=== PATIENT | female | born 1965 | race Caucasian/White ===

== ENCOUNTER 2016-11-09 10:17 | Emergency (ER) | payer MEDICARE, MEDICAID ==
[~2016-11-09] VITALS: Ht 156.2 cm; Wt 64.3 kg
[2016-11-09 10:22] VITALS: BP 133/80; PULSE 84; RESP 16; TEMP 98; O2SAT 95
[2016-11-09] MEDS ORDERED: PROZ40CA PO (10:49)
[2016-11-09] MEDS ORDERED: CLON1 PO (10:49)
[2016-11-09] MEDS ORDERED: SUBO2MIS SL (10:49)
[2016-11-09] MEDS ORDERED: PRED20 PO (10:52)
[2016-11-09] MEDS ORDERED: VENTAER INH (10:52)
--- NOTE | 2016-11-09 10:56 | PD ---
HPI Chief Complaint: Respiratory Symptoms Time Seen by Provider: 10:39 Travel History International Travel<30 days: No Contact w/Intl Traveler<30days: No Traveled to known affect area: No History of Present Illness HPI The patient was seen and examined in the presence of the nurse. She complains of cough and congestion wheeze. She is a lifelong smoker. She denies history of lung disease. She's had some runny nose and congestion but no fever or chest pain. PFSH Past Medical History Anxiety: Yes Tetanus Vaccination: > 5 Years ?: Not LMP: coty menapause Past Surgical History Gynecologic Surgery: Yes (BILAT OOPHERECTOMY) Other Surgery: Yes (FACIAL RECONSTRUCTION) Social History Alcohol Use: No Tobacco Use: Yes (1 PACK PER WEEK) Substance Use: No Allergies-Medications (Allergen,Severity, Reaction): Coded Allergies: No Known Allergies (Unverified , 11/09/16) Reported Meds & Prescriptions Reported Meds & Active Scripts Active Reported Suboxone Sublingual Film (Buprenorphine-Naloxone Sublingual Film) 2-0.5 Mg Film 1 Film SL DAILY Unique ID number required: Prozac (Fluoxetine HCl) 40 Mg Cap 40 Mg PO DAILY Klonopin (Clonazepam) 1 Mg Tab 1 Mg PO HS Review of Systems General / Constitutional: No: Fever HENT: No: Headaches Respiratory: Positive: Cough, Wheezing Physical Exam Narrative GENERAL: Well-nourished, well-developed patient in no apparent distress. SKIN: Focused skin assessment reveals no rash and nodules. Skin is Warm and dry. HEAD: Atraumatic. Normocephalic. EYES: Pupils equal and round. No scleral icterus. No injection or drainage. ENT: No nasal bleeding or discharge. Mucous membranes pink and moist. NECK: Trachea midline. No JVD. CARDIOVASCULAR: Regular rate and rhythm. No murmur appreciated. RESPIRATORY: No accessory muscle use. Minor rhonchi and expiratory wheeze. Breath sounds equal bilaterally. GASTROINTESTINAL: Abdomen soft, non-tender, nondistended. Hepatic and splenic margins not palpable. MUSCULOSKELETAL: No obvious deformities. No clubbing. No cyanosis. No edema. NEUROLOGICAL: Awake and alert. No obvious cranial nerve deficits. Motor grossly within normal limits. Normal speech. PSYCHIATRIC: Appropriate mood and affect; insight and judgment normal. Data Data Last Documented VS Vital Signs Date Time Temp Pulse Resp B/P Pulse Ox O2 Delivery O2 Flow Rate FiO2 11/09/16 10:40 82 16 97 Room Air 11/09/16 10:22 98.0 133/80 MDM Medical Decision Making Medical Screen Exam Complete: Yes Emergency Medical Condition: Yes Medical Record Reviewed: Yes Differential Diagnosis Bronchitis, COPD, URI Narrative Course I have reviewed the patient's electronic medical record. Presentation here consistent with viral bronchitis and likely some mild COPD Prescribed her an albuterol inhaler and encouraged her to stop smoking Gave her 5 days of prednisone Recommend primary care follow-up Diagnosis Primary Impression: Acute viral bronchitis Additional Instructions: The patient was advised to follow up with their physician and return if they worsen. Stop smoking Med/Other Pt SpecificInfo: Prescription(s) given Scripts Albuterol 18 GM Inh (Ventolin Hfa 18 GM Inh)90 Mcg/Act Aer2 Puff INH Q4H PRN ( SHORTNESS OF BREATH) #1 INHALER Ref 0 Prov:Brandon Holt MD 11/09/16 Prednisone 20 Mg Tab20 Mg PO DAILY #5 TAB Ref 0 Prov:Brandon Holt MD 11/09/16 Disposition: 01 DISCHARGE HOME Condition: Stable Brandon Holt MD Nov 09, 2016 10:56
== END 2016-11-09 11:15 | disposition home or self-care (01) ==
LOC: PHED 10:17
DX: J20.8 Acute bronchitis due to other specified organisms (principal)
CPT/HCPCS: 99283

== ENCOUNTER 2017-05-31 10:10 | Inpatient (IN) | payer MEDICARE, MEDICAID ==
[2017-05-31] VITALS (9 sets, daily range): BP systolic 104–129; BP diastolic 65–100; PULSE 95–117; RESP 18–24; TEMP 96–99.4; O2SAT 89–96
[~2017-05-31] VITALS: Ht 156.2 cm; Wt 69.8 kg
[~2017-05-31 10:10] MED LIST: CLON1 PO; PRED20 PO; PROZ40CA PO; SUBO2MIS SL; VENTAER INH
[2017-05-31] MEDS ORDERED: LOSA50TA PO (10:21)
[2017-05-31] MEDS ORDERED: MONT10TA2 PO (10:21)
[2017-05-31] MEDS ORDERED: LEVO50TA4 PO (10:21)
[2017-05-31] MEDS ORDERED: SYMB160A INH (10:21)
[2017-05-31] MEDS ORDERED: methylPREDNISolone SOD SUCC 125 MG/2 ML VIAL IV PUSH ONE (10:30)
[2017-05-31] MEDS: RESP: ALBUTEROL 2.5 MG/IPRATROPIUM 0.5 MG NEB (SCH) INH ×3 (10:39→10:42)
--- NOTE | 2017-05-31 10:44 | PD ---
HPI Chief Complaint: Respiratory Distress Time Seen by Provider: 10:17 Travel History International Travel<30 days: No Contact w/Intl Traveler<30days: No Traveled to known affect area: No History of Present Illness HPI 52-year-old female presents by triage with friend with note of shortness of breath over the past couple of days. She states that she does not wear oxygen at home. She states she is visiting. She states she tried her inhaler without relief. She states she feels worse when she moves around. She denies any other concurrent complaints. Duration is 2 days. She denies other modifying factors. PFSH Past Medical History Anxiety: Yes COPD: Yes Diminished Hearing: No Hypertension: Yes Thyroid Disease: Yes Influenza Vaccination: Yes ?: Not Past Surgical History Gynecologic Surgery: Yes (BILAT OOPHERECTOMY) Other Surgery: Yes (FACIAL RECONSTRUCTION) Social History Alcohol Use: No Tobacco Use: Yes (1 PACK PER WEEK) Substance Use: No Allergies-Medications (Allergen,Severity, Reaction): Coded Allergies: No Known Allergies (Unverified Allergy, Unknown, 05/31/17) Reported Meds & Prescriptions Reported Meds & Active Scripts Active Ventolin Hfa 18 GM Inh (Albuterol Sulfate) 90 Mcg/Act Aer 2 Puff INH Q4H PRN Reported Symbicort Inh (Budesonide/Formoterol Fumarate) 160-4.5 Mcg/Act Aero 1 Puff INH Q12HR Singulair (Montelukast Sodium) 10 Mg Tab 10 Mg PO HS Levothyroxine (Levothyroxine Sodium) 50 Mcg Tab 50 Mcg PO DAILY Losartan (Losartan Potassium) 50 Mg Tab 0 PO DAILY Suboxone Sublingual Film (Buprenorphine-Naloxone Sublingual Film) 2-0.5 Mg Film 1 Film SL DAILY Unique ID number required: Prozac (Fluoxetine HCl) 40 Mg Cap 40 Mg PO DAILY Klonopin (Clonazepam) 1 Mg Tab 1 Mg PO HS Review of Systems Except as stated in HPI: all other systems reviewed are Neg Physical Exam Narrative GENERAL: Well-nourished, well-developed patient. Ill-appearing SKIN: Warm and dry. HEAD: Normocephalic and atraumatic. EYES: No injection or drainage. ENT: No nasal drainage noted. NECK: Supple, trachea midline. CARDIOVASCULAR: Regular rate and rhythm RESPIRATORY: Decreased aeration bilaterally. No accessory muscle use. GASTROINTESTINAL: Abdomen soft, non-tender, nondistended. EXTREMITIES: No edema. NEUROLOGICAL: Awake and alert. Motor and sensory grossly within normal limits. Normal speech. Data Data Last Documented VS Vital Signs Date Time Temp Pulse Resp B/P (MAP) Pulse Ox O2 Delivery O2 Flow Rate FiO2 05/31/17 11:18 99.1 108 20 104/65 (78) 96 Nasal Cannula 2.00 Orders Orders Complete Blood Count With Diff (05/31/17 10:20) Comprehensive Metabolic Panel (05/31/17 10:20) B-Type Natriuretic Peptide (05/31/17 10:20) Act Partial Throm Time (Ptt) (05/31/17 10:20) Prothrombin Time / Inr (Pt) (05/31/17 10:20) Magnesium (Mg) (05/31/17 10:20) Ckmb (Isoenzyme) Profile (05/31/17 10:20) Troponin I (05/31/17 10:20) Influenzae A/B Antigen (05/31/17 10:20) Blood Culture (05/31/17 10:20) Iv Access Insert/Monitor (05/31/17 10:20) Electrocardiogram (05/31/17 10:20) Ecg Monitoring (05/31/17 10:20) Oximetry (05/31/17 10:20) Oxygen Administration (05/31/17 10:20) Chest, Single Ap (05/31/17 10:20) Sodium Chloride 0.9% Flush (Ns Flush) (05/31/17 10:30) Methylprednisolone So Succ Inj (Solumedr (05/31/17 10:30) Albuterol-Ipratropium Neb (Duoneb Neb) (05/31/17 10:30) Lactic Acid (05/31/17 10:20) Ceftriaxone Inj (Rocephin Inj) (05/31/17 11:48) Azithromycin Inj (Zithromax Inj) (05/31/17 11:48) Sodium Chlor 0.9% 1000 Ml Inj (Ns 1000 M (05/31/17 12:00) Admit To Inpatient (05/31/17 ) Vital Signs (Adult) KETURAH.Q4H (05/31/17 12:25) Activity Oob With Assistance (05/31/17 12:25) Trouble Operator / Telemetry KETURAH.Q8H (05/31/17 12:25) Sodium Chlor 0.45% 1000 Ml Inj (1/2 Ns 1 (05/31/17 12:25) Inpatient Certification (05/31/17 ) Admit Order (Ed Use Only) (05/31/17 12:25) Labs Laboratory Tests Test 05/31/17 10:45 White Blood Count 21.2 TH/MM3 Red Blood Count 4.18 MIL/MM3 Hemoglobin 12.1 GM/DL Hematocrit 36.1 % Mean Corpuscular Volume 86.3 FL Mean Corpuscular Hemoglobin 28.9 PG Mean Corpuscular Hemoglobin Concent 33.5 % Red Cell Distribution Width 14.3 % Platelet Count 349 TH/MM3 Mean Platelet Volume 8.1 FL Neutrophils (%) (Auto) 93.9 % Lymphocytes (%) (Auto) 2.9 % Monocytes (%) (Auto) 1.8 % Eosinophils (%) (Auto) 0.6 % Basophils (%) (Auto) 0.8 % Neutrophils # (Auto) 19.9 TH/MM3 Lymphocytes # (Auto) 0.6 TH/MM3 Monocytes # (Auto) 0.4 TH/MM3 Eosinophils # (Auto) 0.1 TH/MM3 Basophils # (Auto) 0.2 TH/MM3 CBC Comment AUTO DIFF Prothrombin Time 10.7 SEC Prothromb Time International Ratio 1.0 RATIO Activated Partial Thromboplast Time 26.1 SEC Blood Urea Nitrogen 17 MG/DL Creatinine 0.92 MG/DL Random Glucose 152 MG/DL Total Protein 7.3 GM/DL Albumin 2.0 GM/DL Calcium Level 8.6 MG/DL Magnesium Level 2.1 MG/DL Alkaline Phosphatase 180 U/L Aspartate Amino Transf (AST/SGOT) 21 U/L Alanine Aminotransferase (ALT/SGPT) 14 U/L Total Bilirubin 0.4 MG/DL Sodium Level 135 MEQ/L Potassium Level 3.5 MEQ/L Chloride Level 100 MEQ/L Carbon Dioxide Level 23.3 MEQ/L Anion Gap 12 MEQ/L Estimat Glomerular Filtration Rate 64 ML/MIN Lactic Acid Level 1.3 mmol/L Total Creatine Kinase 87 U/L Troponin I 0.03 NG/ML B-Type Natriuretic Peptide 150 PG/ML MDM Medical Decision Making Medical Screen Exam Complete: Yes Emergency Medical Condition: Yes Interpretation(s) CBC & BMP Diagram 10/30/17 10:45 Total Protein 7.3, Albumin 2.0 L, Calcium Level 8.6, Magnesium Level 2.1, Alkaline Phosphatase 180 H, Aspartate Amino Transf (AST/SGOT) 21, Alanine Aminotransferase (ALT/SGPT) 14, Total Bilirubin 0.4 Last 24 hours Impressions Chest X-Ray 05/31/17 1020 Signed Impressions: Service Date/Time: Wednesday, May 31, 2017 11:07 - CONCLUSION: 1. Diffuse interstitial prominence, likely chronic although chronicity is difficult to establish without previous exams. 2. Superimposed patchy airspace opacities throughout the left lung most prominently in the left upper lobe. Differential considerations and fluid atypical pulmonary edema versus infection/ inflammatory etiologies. Barry Erickson MD Differential Diagnosis COPD exacerbation, pneumothorax, pneumonia, URI, anemia, renal failure Narrative Course Will check blood work, chest x-ray and dose with DuoNeb's, Solu-Medrol and reevaluate Patient with poor IV access, EJ placed by me in flush. Patient updated and agrees to admission to the hospital she is feeling better but is still requiring oxygen and tachypneic Procedures Procedure Narrative Right sided EJ placed by me after unable to thread left after blood flow. Blood work sent and flushed without discomfort. Line secured Sepsis Criteria SIRS Criteria (2 or more): Heart rate over 90, WBC > 54927, < 4000 or > 10% bands Sepsis Criteria (SIRS+source): Infect source susp/known Criteria Outcome: Meets sepsis criteria Physician Communication Physician Communication dr palmer agrees to admit Diagnosis Primary Impression: COPD exacerbation Additional Impression: Sepsis Qualified Codes: A41.9 - Sepsis, unspecified organism Admitting Information Admitting Physician Requests: Admit Jeri Hernandez MD May 31, 2017 10:44
[2017-05-31 11:18] LABS: APTT (PATIENT) 26.1 SEC (24.3-30.1); AUTOMATED NEUTROPHIL # 19.9 TH/MM3 (1.8-7.7); BASOPHIL # 0.2 TH/MM3 (0-0.2); BASOPHIL % 0.8 % (0.0-2.0); EOSINOPHIL # 0.1 TH/MM3 (0-0.4); EOSINOPHIL % 0.6 % (0.0-4.0); HEMATOCRIT 36.1 % (35.0-46.0); LYMPH % 2.9 % (9.0-44.0); LYMPHOCYTE # 0.6 TH/MM3 (1.0-4.8); MEAN CELL VOLUME 86.3 FL (80.0-100.0); MEAN CORPUSCULAR HEMOGLOBIN 28.9 PG (27.0-34.0); MEAN CORPUSCULAR HGB CONC 33.5 % (32.0-36.0); MONO % 1.8 % (0.0-8.0); NEUT % 93.9 % (16.0-70.0); PLATELET COUNT 349 TH/MM3 (150-450); PROTHROMBIN TIME - PATIENT 10.7 SEC (9.8-11.6); RED BLOOD COUNT 4.18 MIL/MM3 (4.00-5.30); RED CELL DISTRIBUTION WIDTH 14.3 % (11.6-17.2); WHITE BLOOD COUNT 21.2 TH/MM3 (4.0-11.0)
[2017-05-31 11:25] LABS: HEMO FLAGS AUTO DIFF
[2017-05-31 11:30] LABS: ALT (GPT) 14 U/L (10-53); ANION GAP 12 MEQ/L (5-15); AST (GOT) 21 U/L (15-37); BICARBONATE 23.3 MEQ/L (21.0-32.0); BLOOD UREA NITROGEN 17 MG/DL (7-18); CHLORIDE 100 MEQ/L (98-107); GLOMERULAR FILTRATION RATE 64 ML/MIN (>89); MAGNESIUM 2.1 MG/DL (1.5-2.5); POTASSIUM 3.5 MEQ/L (3.5-5.1); SODIUM (NA) 135 MEQ/L (136-145); TOTAL BILIRUBIN ADULT 0.4 MG/DL (0.2-1.0)
[2017-05-31 11:31] LABS: ALKALINE PHOSPHATASE 180 U/L (45-117); CREATINE KINASE 87 U/L (26-192)
--- NOTE | 2017-05-31 11:44 | RADRPT ---
EXAM DATE/TIME: 05/31/2017 11:07 [facility] COMPARISON: No previous studies available for comparison. INDICATIONS : Short of breath. MEDICAL HISTORY : Hypertension. Chronic obstructive pulmonary disease. smoker SURGICAL HISTORY : None. ENCOUNTER: Initial ACUITY: 3 days PAIN SCORE: 0/10 LOCATION: Bilateral chest FINDINGS: Diffuse interstitial prominence with superimposed airspace disease throughout the left lobe most prom inently in the left upper lobe. Cardiomediasti contours are within normal limits. Bony thorax is inta ct. CONCLUSION: 1. Diffuse interstitial prominence, likely chronic although chronicity is difficult to establish with out previous exams. 2. Superimposed patchy airspace opacities throughout the left lung most prominently in the left upper lobe. Differential considerations and fluid atypical pulmonary edema versus infection/inflammatory e tiologies. Barry Erickson MD on May 31, 2017 at 11:40 Board Certified Radiologist. This report was verified electronically.
[2017-05-31] MEDS ORDERED: AZITHROMYCIN INJ 500 MG in SODIUM CHLOR 0.9% 250 ML INJ 250 ML IV STA (11:48)
[2017-05-31] MEDS ORDERED: cefTRIAXone INJ 2,000 MG in SODIUM CHLORIDE 0.9% INJ 100 ML IV STA (11:48)
[2017-05-31] MEDS ORDERED: SODIUM CHLOR 0.9% 1000 ML INJ 1,000 ML IV ONE (12:00)
[2017-05-31] MEDS: SODIUM CHLORIDE 0.9% FLUSH 10 ML FLUSH IVF PRN ×2 (12:01→14:18)
[2017-05-31 12:49] LABS: BANDS 16 % (0-6); METAMYELOCYTES 1 % (0-1); MYELOCYTES 1 % (0-0); NEUTROPHIL # MANUAL DIFF 20.4 TH/MM3 (1.8-7.7); POLYS (SEG NEUTROPHILS) 78 % (16-70); WBC DIFF SAMPLE 100
[2017-05-31 12:51] LABS: DOHLE BODIES PRESENT (NONE SEEN); PLATELET ESTIMATE SMEAR NORMAL (NORMAL); PLATELET MORPHOLOGY NORMAL (NORMAL); SCAN/DIFF FINAL DIFF MANUAL; TOXIC GRANULATION 3+ (NORMAL)
[2017-05-31] MEDS: SODIUM CHLOR 0.45% 1000 ML INJ 1,000 ML IV SCH (14:18)
[2017-05-31] MEDS ORDERED: RESP: ALBUTEROL 2.5 MG/3 ML NEB (PRN) NEB (14:45)
[2017-05-31] MEDS: RESP: ALBUTEROL 2.5 MG/IPRATROPIUM 0.5 MG NEB (SCH) NEB ×2 (16:16→21:00)
--- NOTE | 2017-05-31 16:53 | HHI.HP ---
[facility] Non[facility]Staff Admission Diagnosis copd exacerbation Diagnoses: (1) Sepsis Diagnosis: Principal (2) Chronic obstructive pulmonary disease with acute exacerbation (3) Tobacco use (4) Leukocytosis Chief Complaint: Shortness of breath, dyspnea Travel History International Travel<30 Days: No Contact w/Intl Traveler <30 Da: No Traveled to Known Affected Are: No Sepsis Criteria SIRS Criteria (2 or more): Heart rate over 90, WBC > 22216, < 4000 or > 10% bands Sepsis Criteria (SIRS+source): Infect source susp/known Criteria Outcome: Meets sepsis criteria History of Present Illness Written by Brandon Sin, acting as scribe for Dr. Hutchinson on 05/31/17 at 16:30. 52-year-old female with known history of chronic obstructive pulmonary disease, chronic tobacco use, chronic back pain, hypertension, hypothyroidism who presented to hospital because of 4 day history of difficulty breathing. Patient states that 4 days ago she developed a sudden onset of chest pain located over her left sternal border which she described as a tightness and 9/10 on a pain scale. She states that it felt as if someone hit her in the chest. However since then she is been having intermittent chest pain that would go down to a 4/10 on a pain scale. She indicates that her chest pain did go away yesterday. She has had nausea vomiting, denies any diaphoresis. She states she started developing significant shortness of breath 3 days ago and progressively got worse until it was severe today. She states that she has never felt this way before. She is down here visiting from [place]. She does indicate that she has been smoking more since she has been visiting here. She is smoking up to a pack a cigarettes a day. She states that someone gave her some antibiotics yesterday and she has been taking that for 2 days. She had been taking ibuprofen with cough medicine. Her symptoms did not improve so she came to emergency department for evaluation. She denies any fever or chills, denies any dysuria. Has had urinary frequency. Patient had workup done emergency department found to have sepsis per criteria and recommended admission for further recommendations Review of Systems Respiratory: COMPLAINS OF: Cough, Shortness of breath Cardiovascular: COMPLAINS OF: Chest pain, Dyspnea on Exertion Genitourinary: COMPLAINS OF: Urinary frequency Except as stated in HPI: all other systems reviewed are Neg Past Family Social History Past Medical History Hypertension Chronic back pain Chronic affective pulmonary disease Chronic tobacco use Hypothyroidism Past Surgical History Bilateral breast lumpectomies Facial reconstruction Back surgery Bilateral oophorectomy Reported Medications Last Impressions Chest X-Ray 05/31/17 1020 Signed Impressions: Service Date/Time: Wednesday, May 31, 2017 11:07 - CONCLUSION: 1. Diffuse interstitial prominence, likely chronic although chronicity is difficult to establish without previous exams. 2. Superimposed patchy airspace opacities throughout the left lung most prominently in the left upper lobe. Differential considerations and fluid atypical pulmonary edema versus infection/ inflammatory etiologies. Barry Erickson MD Allergies: Coded Allergies: No Known Allergies (Unverified Allergy, Unknown, 05/31/17) Family History Reviewed is significant for chronic affective pulmonary disease, myocardial infarction, heart disease Social History Patient does smoke cigarettes and she usually smokes 5 cigarettes a day, however she is smoking 1 pack a day at this time since she was a teenager. She denies any alcohol use. She states when she was much younger she did try illicit drugs to include pain pills, but then would not divulge any other information Physical Exam Vital Signs Vital Signs Date Time Temp Pulse Resp B/P (MAP) Pulse Ox O2 Delivery O2 Flow Rate FiO2 05/31/17 15:10 97.2 98 24 129/84 (99) 94 05/31/17 14:48 05/31/17 14:24 96 18 110/71 (84) 94 Nasal Cannula 2.00 05/31/17 11:18 99.1 108 20 104/65 (78) 96 Nasal Cannula 2.00 05/31/17 10:45 96 05/31/17 10:45 96 Nasal Cannula 3.00 05/31/17 10:19 118 24 93 Nasal Cannula 2.00 05/31/17 10:13 99.4 117 24 129/97 (108) 89 Physical Exam GENERAL: Well-developed, well-nourished, and respiratory status stress cannot complete sentences. alert and orientated HEENT: Head is normocephalic without any lesions or masses noted. Facial features are symmetric. Eyes: Extraocular muscles are intact. Conjunctivae were clear. Oropharyngeal: Pharynx without any erythema edema. Tongue is midline without deviation. Buccal mucosa is moist without any masses or lesions CARDIAC: Regular rhythm, regular rate. S1/S2 are heard. No murmurs gallops or rubs. Patient does have reproducible palpable tenderness noted of the left anterior chest. LUNGS: Moderately diminished breath sounds noted bilaterally, mild expiratory wheeze noted. No wheeze, rhonchi or rales. No use of accessory muscles on inspiration or expiration. ABDOMEN: Soft, nontender. Nondistended. Bowel sounds heard in all 4 quadrants. No organomegaly or masses. Negative rebound, negative guarding EXTREMITIES: No edema, pulses are equal bilaterally. No cyanosis or clubbing Muscle skeletal: 5 out of 5 strength in proximal upper and lower ext bilaterally , grossly intact range of motion NEUROLOGY: No facial droop, no slurred speech, no tremors Psychiatry: hAs a very anxious mood, affect otherwise appropriate Laboratory Laboratory Tests Test 05/31/17 10:45 White Blood Count 21.2 Red Blood Count 4.18 Hemoglobin 12.1 Hematocrit 36.1 Mean Corpuscular Volume 86.3 Mean Corpuscular Hemoglobin 28.9 Mean Corpuscular Hemoglobin Concent 33.5 Red Cell Distribution Width 14.3 Platelet Count 349 Mean Platelet Volume 8.1 Neutrophils (%) (Auto) 93.9 Lymphocytes (%) (Auto) 2.9 Monocytes (%) (Auto) 1.8 Eosinophils (%) (Auto) 0.6 Basophils (%) (Auto) 0.8 Neutrophils # (Auto) 19.9 Lymphocytes # (Auto) 0.6 Monocytes # (Auto) 0.4 Eosinophils # (Auto) 0.1 Basophils # (Auto) 0.2 CBC Comment AUTO DIFF Differential Total Cells Counted 100 Neutrophils % (Manual) 78 Band Neutrophils % 16 Lymphocytes % 2 Monocytes % 2 Neutrophils # (Manual) 20.4 Metamyelocytes 1 Myelocytes 1 Differential Comment FINAL DIFF MANUAL Toxic Granulation 3+ Dohle Bodies PRESENT Platelet Estimate NORMAL Platelet Morphology Comment NORMAL Prothrombin Time 10.7 Prothromb Time International Ratio 1.0 Activated Partial Thromboplast Time 26.1 Blood Urea Nitrogen 17 Creatinine 0.92 Random Glucose 152 Total Protein 7.3 Albumin 2.0 Calcium Level 8.6 Magnesium Level 2.1 Alkaline Phosphatase 180 Aspartate Amino Transf (AST/SGOT) 21 Alanine Aminotransferase (ALT/SGPT) 14 Total Bilirubin 0.4 Sodium Level 135 Potassium Level 3.5 Chloride Level 100 Carbon Dioxide Level 23.3 Anion Gap 12 Estimat Glomerular Filtration Rate 64 Lactic Acid Level 1.3 Total Creatine Kinase 87 Troponin I 0.03 B-Type Natriuretic Peptide 150 Date/Time Source Procedure Growth Status 05/31/17 10:50 Blood Peripheral Aerobic Blood Culture Pending Received 05/31/17 10:50 Blood Peripheral Anaerobic Blood Culture Pending Received 05/31/17 11:51 Nasal Aspirate Influenza Types A,B Antigen (IRENE) - Final NEGATIVE FOR FLU A AND B ANTIGEN.... Complete Result Diagram: 05/31/17 1045 05/31/17 1045 Imaging Last Impressions Chest X-Ray 05/31/17 1020 Signed Impressions: Service Date/Time: Wednesday, May 31, 2017 11:07 - CONCLUSION: 1. Diffuse interstitial prominence, likely chronic although chronicity is difficult to establish without previous exams. 2. Superimposed patchy airspace opacities throughout the left lung most prominently in the left upper lobe. Differential considerations and fluid atypical pulmonary edema versus infection/ inflammatory etiologies. Barry Erickson MD Septic Shock Reassessment Heart: Regular rate and rhythm Lungs: Clear, Diminished Skin: Warm Peripheral Pulses: Bounding Right Radial Bounding Left Radial Capillary Refill: Brisk, <2 seconds Caprini VTE Risk Assessment Caprini VTE Risk Assessment: Mod/High Risk (score >= 2) Caprini Risk Assessment Model Point Value = 1 Point Value = 2 Point Value = 3 Point Value = 5 Age 41-60 Minor surgery BMI > 25 kg/m2 Swollen legs Varicose veins or History of unexplained or recurrent spontaneous Oral contraceptives or hormone replacement Sepsis (< 1 month) Serious lung disease, including pneumonia (< 1 month) Abnormal pulmonary function Acute myocardial infarction Congestive heart failure (< 1 month) History of inflammatory bowel disease Medical patient at bed rest Age 61-74 Arthroscopic surgery Major open surgery (> 45 min) Laparoscopic surgery (> 45 min) Malignancy Confined to bed (> 72 hours) Immobilizing plaster cast Central venous access Age >= 75 History of VTE Family history of VTE Factor V Leiden Prothrombin [id number] Lupus anticoagulant Anticardiolipin antibodies Elevated serum homocysteine Heparin-induced thrombocytopenia Other congenital or acquired thrombophilia Stroke (< 1 month) Elective arthroplasty Hip, pelvis, or leg fracture Acute spinal cord injury (< 1 month) Prophylaxis Regimen Total Risk Factor Score Risk Level Prophylaxis Regimen 0-1 Low Early ambulation 2 Moderate Order ONE of the following: *Sequential Compression Device (SCD) *Heparin 5000 units SQ BID 3-4 Higher Order ONE of the following medications: *Heparin 5000 units SQ TID *Enoxaparin/Lovenox 40 mg SQ daily (WT < 150 kg, CrCl > 30 mL/min) *Enoxaparin/Lovenox 30 mg SQ daily (WT < 150 kg, CrCl > 10-29 mL/min) *Enoxaparin/Lovenox 30 mg SQ BID (WT < 150 kg, CrCl > 30 mL/min) AND/OR *Sequential Compression Device (SCD) 5 or more Highest Order ONE of the following medications: *Heparin 5000 units SQ TID (Preferred with Epidurals) *Enoxaparin/Lovenox 40 mg SQ daily (WT < 150 kg, CrCl > 30 mL/min) *Enoxaparin/Lovenox 30 mg SQ daily (WT < 150 kg, CrCl > 10-29 mL/min) *Enoxaparin/Lovenox 30 mg SQ BID (WT < 150 kg, CrCl > 30 mL/min) AND *Sequential Compression Device (SCD) Assessment and Plan Assessment and Plan Sepsis - Patient meets criteria with leukocytosis and bandemia, tachycardia, patchy airspace disease noted in the left lung - Patient started on empirical antibiotics include cefepime, Zithromax - Influenza testing was negative - Follow blood cultures - Obtain sputum culture, Legionella testing, pneumococcal testing Chronic obstructive pulmonary disease with acute exacerbation - Continue O2 supplementation maintain O2 sats greater 92% - Solu-Medrol 125 mg every 8 hours - Duo nebs every 6 hours and every 2 hours as needed - Pulmonology consulted for recommendations Leukocytosis bandemia - Secondary to upper respiratory infection - Continue monitor CBC Hyperglycemia - Check hemoglobin A1c - Anticipate glucose worsening secondary to steroids, Start Accu-Cheks with sliding scale insulin if needed Hypertension - Continue home medications Hypothyroidism - Check TSH - Resume replacement therapy Prophylaxis - GI protection with Pepcid - DVT prevention with Sequential compression devices Physician Certification 2 Midnight Certification Type: Admission for Inpatient Services Order for Inpatient Services The services are ordered in accordance with Medicare regulations or non- Medicare payer requirements, as applicable. In the case of services not specified as inpatient-only, they are appropriately provided as inpatient services in accordance with the 2-midnight benchmark. Estimated LOS (days): 3 days is the estimated time the patient will need to remain in the hospital, assuming treatment plan goals are met and no additional complications. Post-Hospital Plan: Not yet determined Problem Qualifiers (1) Sepsis: Qualified Codes: A41.9 - Sepsis, unspecified organism Brandon Sin May 31, 2017 16:53 Carlos Hutchinson MD Jun 01, 2017 16:55
[2017-05-31] MEDS: CEFEPIME INJ 1,000 MG in SODIUM CHLORIDE 0.9% INJ 100 ML IV SCH ×2 (17:12→23:20)
[2017-05-31] MEDS: NICOTINE 7 MG/24 HR PATCH T-DERMAL SCH (17:43)
--- NOTE | 2017-05-31 20:55 | RADRPT ---
EXAM DATE/TIME: 05/31/2017 20:00 [facility] COMPARISON: CHEST SINGLE AP, May 31, 2017, 11:07. INDICATIONS : Pain and shortness of breath. Abnormal chest plain film exam demonstrating airspace disease in the le ft hemithorax. Patient is being evaluated for pneumonia.. RADIATION DOSE: 10.33 CTDIvol (mGy) MEDICAL HISTORY : Emphysema. Hypertension. SURGICAL HISTORY : None. ENCOUNTER: Initial ACUITY: 1 day PAIN SCALE: 9/10 LOCATION: Bilateral chest TECHNIQUE: Volumetric scanning of the chest was performed. Using automated exposure control and adjustment of t he mA and/or kV according to patient size, radiation dose was kept as low as reasonably achievable to obtain optimal diagnostic quality images. DICOM format image data is available electronically for r eview and comparison. Follow-up recommendations for detected pulmonary nodules are based at a minimum on nodule size and pa tient risk factors according to Fleischner Society Guidelines. FINDINGS: LUNGS: There is dense alveolar consolidation in the right upper lobe, perihilar region and lingula with mult iple air bronchograms. There is underlying emphysema with mild hyperinflation. There is coarse chroni c interstitial opacity along the periphery of the right lateral lung. There is apparent honeycombing in the left upper lobe. There is no pneumothorax. No concerning pulmonary nodule is visualized. PLEURAE: There is a minimal left effusion. MEDIASTINUM: The heart and great vessels demonstrate no acute abnormality. There is no mediastinal or hilar lymph adenopathy. AXILLAE: Within normal limits. No lymphadenopathy. MUSCULOSKELETAL: Within normal limits for patient age. MISCELLANEOUS: The visualized upper abdominal organs demonstrate no acute abnormality. CONCLUSION: 1. Dense consolidation in the lingula and left upper lobe characteristic of pneumonia. 2. Underlying emphysema and scarring. 3. Minimal left effusion Jc Randolph MD on May 31, 2017 at 20:50 Board Certified Radiologist. This report was verified electronically.
[2017-05-31] MEDS: methylPREDNISolone SOD SUCC 125 MG/2 ML VIAL IV PUSH SCH (21:44)
[2017-05-31] MEDS: clonazePAM 1 MG TAB PO SCH (21:45)
[2017-05-31] MEDS: FAMOTIDINE 20 MG TAB PO SCH (21:45)
[2017-05-31] MEDS: MONTELUKAST SODIUM 10 MG TAB PO SCH (21:45)
[2017-05-31] MEDS: BUDESONIDE-FORMOTEROL 160/4.5 MCG INHALER INH SCH (23:20)
[2017-06-01] VITALS (10 sets, daily range): BP systolic 112–143; BP diastolic 79–98; PULSE 85–104; RESP 20–24; TEMP 96–97.9; O2SAT 91–97
[2017-06-01] MEDS: RESP: ALBUTEROL 2.5 MG/IPRATROPIUM 0.5 MG NEB (SCH) NEB ×4 (03:06→21:20)
[2017-06-01] MEDS: SODIUM CHLORIDE 0.9% FLUSH 10 ML FLUSH IVF PRN ×2 (03:34→07:00)
[2017-06-01] MEDS: methylPREDNISolone SOD SUCC 125 MG/2 ML VIAL IV PUSH SCH ×3 (03:34→19:55)
[2017-06-01] MEDS: SODIUM CHLOR 0.45% 1000 ML INJ 1,000 ML IV SCH ×2 (03:38→15:05)
[2017-06-01] MEDS: LEVOTHYROXINE SODIUM 50 MCG TAB PO SCH (05:30)
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
[2017-06-01] MEDS ORDERED: MORPHINE SULFATE 2 MG/ML INJ IV ONE (07:00)
[2017-06-01 07:45] LABS: AUTOMATED NEUTROPHIL # 18.6 TH/MM3 (1.8-7.7); BASOPHIL % 0.1 % (0.0-2.0); EOSINOPHIL % 0.1 % (0.0-4.0); HEMATOCRIT 36.2 % (35.0-46.0); LYMPH % 3.2 % (9.0-44.0); LYMPHOCYTE # 0.6 TH/MM3 (1.0-4.8); MEAN CELL VOLUME 86.4 FL (80.0-100.0); MEAN CORPUSCULAR HEMOGLOBIN 28.2 PG (27.0-34.0); MEAN CORPUSCULAR HGB CONC 32.6 % (32.0-36.0); MONO % 0.9 % (0.0-8.0); NEUT % 95.7 % (16.0-70.0); PLATELET COUNT 361 TH/MM3 (150-450); RED BLOOD COUNT 4.19 MIL/MM3 (4.00-5.30); RED CELL DISTRIBUTION WIDTH 14.5 % (11.6-17.2); WHITE BLOOD COUNT 19.4 TH/MM3 (4.0-11.0)
[2017-06-01 07:53] LABS: HEMO FLAGS DIFF FINAL
[2017-06-01] MEDS ORDERED: NALOXONE SL SCH (09:00)
[2017-06-01] MEDS: REMOVE OLD PATCH T-DERMAL SCH (09:00)
[2017-06-01] MEDS ORDERED: NICOTINE 7 MG/24 HR PATCH T-DERMAL SCH (09:00)
[2017-06-01] MEDS ORDERED: BUPRENORPHINE SL SCH (09:00)
[2017-06-01] MEDS: CEFEPIME INJ 1,000 MG in SODIUM CHLORIDE 0.9% INJ 100 ML IV SCH ×3 (09:11→23:42)
[2017-06-01] MEDS: BUDESONIDE-FORMOTEROL 160/4.5 MCG INHALER INH SCH ×2 (09:11→19:56)
[2017-06-01] MEDS: NICOTINE 7 MG/24 HR PATCH T-DERMAL SCH (09:13)
[2017-06-01] MEDS: AZITHROMYCIN 250 MG TAB PO SCH (09:14)
[2017-06-01] MEDS: FLUoxetine HCL 20 MG CAP PO SCH (09:14)
[2017-06-01] MEDS ORDERED: ALPRAZolam 1 MG TAB PO ONE (12:50)
--- NOTE | 2017-06-01 13:02 | HHI.PR ---
Subjective Remarks Nurse reports the patient is still quite anxious. Patient says she feels much better since admission she still appears to be quite labored in her breathing which could be a component of anxiety mixed with her pathophysiology. Says she hates having the IV line in her neck, requesting something for her sore throat Objective Vital Signs Date Time Temp Pulse Resp B/P (MAP) Pulse Ox O2 Delivery O2 Flow Rate FiO2 06/01/17 12:18 97.9 104 20 139/90 (106) 94 06/01/17 11:07 93 Nasal Cannula 3.00 06/01/17 09:18 18 06/01/17 08:07 97.4 88 20 127/90 (102) 96 06/01/17 06:30 96.0 90 24 137/97 (110) 96 06/01/17 06:00 93 Nasal Cannula 2.00 28 06/01/17 04:00 96.0 85 22 112/79 (90) 93 06/01/17 00:00 96.0 90 20 128/85 (99) 97 05/31/17 21:01 93 Nasal Cannula 3.00 05/31/17 20:00 95 05/31/17 20:00 96.0 95 20 123/100 (108) 93 05/31/17 17:36 102 05/31/17 17:21 94 Nasal Cannula 2.00 05/31/17 15:10 97.2 98 24 129/84 (99) 94 05/31/17 14:48 05/31/17 14:24 96 18 110/71 (84) 94 Nasal Cannula 2.00 I/O 05/31/17 05/31/17 05/31/17 06/01/17 06/01/17 06/01/17 07:00 15:00 23:00 07:00 15:00 23:00 Intake Total 1270 ml 682 ml 1296 ml Output Total 300 ml Balance 1270 ml 382 ml 1296 ml Intake Oral 240 ml 0 ml IV Total 1270 ml 442 ml 1296 ml Output Urine Total 300 ml # Voids 0 # Bowel Movements 1 0 Result Diagram: 06/01/17 0710 05/31/17 1045 Objective Remarks Mildly labored breathing, slightly tachypneic Breath sounds are still short, shallow, has obvious wheezing heard anteriorly in the expiratory phase, no cyanosis appears anxious, at one point starts to cry A/P Assessment and Plan Sepsis secondary to pneumonia - Clinically improving, at this point leukocytosis would otherwise be improving but since the patient is on steroids it is hard to decipher - Patient started on empirical antibiotics include cefepime, Zithromax - Influenza testing was negative - Follow blood cultures as below, sputum culture pending - Legionella testing, pneumococcal testing are PENDING Bacteremia - new problem, strep pneumo found in blood, continue tx as above w/ cefepime , sensitivities pending Hypoxia - possibly chronic but given clinical picture of mild distress, CTA being ordered to r/o PE - Supplemental oxygen for COPD below - BMP in AM Left lobar consolidation - Given the vast consolidation seen on chest x-ray, pulmonology has been consulted and are following Chronic obstructive pulmonary disease with acute exacerbation - Continue O2 supplementation maintain O2 sats greater 92% - Solu-Medrol 125 mg every 8 hours for another 24 hours before weaning down to 60 MG given that the patient is still quite dyspneic - Duo nebs every 6 hours and every 2 hours as needed - Pulmonology following hyperglycemia - A1c is pending - Anticipate glucose worsening secondary to steroids, Start Accu-Cheks with sliding scale insulin if needed Hypertension - Continue home medications Hypothyroidism -Within normal limits - Resume replacement therapy Prophylaxis - GI protection with Pepcid - Lovenox Carlos Hutchinson MD Jun 01, 2017 13:02
[2017-06-01] MEDS ORDERED: ENOXAPARIN SODIUM 30 MG/0.3 ML SYRINGE SQ SCH (14:00)
[2017-06-01] MEDS ORDERED: BENZOCAINE-MENTHOL (SUGAR FREE) 15 MG-3.6 MG LOZENGE BUCCAL ONE (14:00)
[2017-06-01] MEDS ORDERED: BUPRENORPHINE/NALOXONE 8 MG/2 MG SUBLINGUAL TAB SL SCH (15:00)
[2017-06-01] MEDS: BUPRENORPHINE/NALOXONE 8 MG/2 MG SUBLINGUAL TAB SL SCH (16:00)
[2017-06-01] MEDS ORDERED: PILL SPLITTER OTHER PRN (16:30)
[2017-06-01] MEDS ORDERED: ENOXAPARIN SODIUM 80 MG/0.8 ML SYRINGE SQ SCH (18:00)
--- NOTE | 2017-06-01 18:11 | EKG ---
Date Performed: 06/01/2017 Time Performed: 07:11:51 PTAGE: 52 years EKG: Sinus rhythm NORMAL ECG Compared to prior tracing no significant change PREVIOUS TRACING : 05/31/2017 10.27 DOCTOR: Noemi Enrique Interpretating Date/Time 06/01/2017 18:10:39
--- NOTE | 2017-06-01 18:11 | EKG ---
Date Performed: 05/31/2017 Time Performed: 10:27:45 PTAGE: 52 years EKG: SINUS TACHYCARDIA WITH SHORT ID INTERVAL ABNORMAL RHYTHM ECG NO PREVIOUS TRACING DOCTOR: Neomi Enrique Interpretating Date/Time 06/01/2017 18:10:29
[2017-06-01] MEDS ORDERED: IOHEXOL 350 MG/ML 10 ML VIAL (for RAD DIAG) IVCONTRAST ONE (18:45)
--- NOTE | 2017-06-01 18:55 | RADRPT ---
EXAM DATE/TIME: 06/01/2017 18:30 [facility] COMPARISON: CT THORAX W/O CONTRAST, May 31, 2017, 20:00. INDICATIONS : Patient with hypoxia and dense consolidation in the lingula and left upper lobe consistent with pneum onia. Evaluate for pulmonary embolism. IV CONTRAST: 65 cc Omnipaque 350 (iohexol) IV RADIATION DOSE: 15.06 CTDIvol (mGy) MEDICAL HISTORY : Hypertension. Chronic obstructive pulmonary disease. Gastroesophageal reflux disease. SURGICAL HISTORY : None. ENCOUNTER: Initial ACUITY: 2 days PAIN SCALE: 0/10 LOCATION: chest TECHNIQUE: Volumetric scanning of the chest was performed using a pulmonary embolism protocol MIP images were re constructed. Using automated exposure control and adjustment of the mA and/or kV according to patien t size, radiation dose was kept as low as reasonably achievable to obtain optimal diagnostic quality images. DICOM format image data is available electronically for review and comparison. Follow-up recommendations for detected pulmonary nodules are based at a minimum on nodule size and pa tient risk factors according to Fleischner Society Guidelines. FINDINGS: PULMONARY ARTERIES: No filling defects are seen in the pulmonary arteries through the segmental level. LUNGS: There is no pneumothorax . Areas of dense consolidation are again noted in the left upper lobe and li ngula with air bronchograms. This may be slightly improved. There is underlying emphysema and chronic lung disease with honeycombing in the upper lobes. There is mild apparent scarring again noted in th e right middle lobe towards the periphery. PLEURAE: There is no pleural thickening or pleural effusion. MEDIASTINUM: There is good visualization of the great vessels of the middle mediastinum. No evidence of mediastin al or hilar adenopathy/mass. MUSCULOSKELETAL: Within normal limits for patient age. MISCELLANEOUS: The visualized upper abdominal organs demonstrate no acute abnormality. CONCLUSION: 1. No evidence of pulmonary embolism. 2. Consolidation remains in the left upper lobe and lingula with apparent slight improvement. This re demetrio characteristic of pneumonia. 3. Underlying emphysema and scarring. Jc Randolph MD on June 01, 2017 at 18:51 Board Certified Radiologist. This report was verified electronically.
[2017-06-01 19:32] LABS: HEMOGLOBIN A1a 1.3 %; HEMOGLOBIN Ao 84.2 %; HEMOGLOBIN LA1C 2.2 %; HEMOGLOBIN P3 3.7 %
[2017-06-01] MEDS: clonazePAM 1 MG TAB PO SCH (19:56)
[2017-06-01] MEDS: FAMOTIDINE 20 MG TAB PO SCH (19:56)
[2017-06-01] MEDS: MONTELUKAST SODIUM 10 MG TAB PO SCH (19:56)
--- NOTE | 2017-06-01 20:06 | HHI.PR ---
Subjective Remarks 52 YOWF with COPD Exac, PN CT Chest showes dense infilt Breathing better No CP Objective Vital Signs Vital Signs Date Time Temp Pulse Resp B/P (MAP) Pulse Ox O2 Delivery O2 Flow Rate FiO2 06/01/17 17:14 Nasal Cannula 3.00 28 06/01/17 16:00 97.8 89 22 130/84 (99) 96 06/01/17 12:18 97.9 104 20 139/90 (106) 94 06/01/17 11:07 93 Nasal Cannula 3.00 06/01/17 09:18 18 06/01/17 08:07 97.4 88 20 127/90 (102) 96 06/01/17 06:30 96.0 90 24 137/97 (110) 96 06/01/17 06:00 93 Nasal Cannula 2.00 28 06/01/17 04:00 96.0 85 22 112/79 (90) 93 06/01/17 00:00 96.0 90 20 128/85 (99) 97 05/31/17 21:01 93 Nasal Cannula 3.00 I/O 05/31/17 05/31/17 05/31/17 06/01/17 06/01/17 06/01/17 07:00 15:00 23:00 07:00 15:00 23:00 Intake Total 1270 ml 682 ml 1296 ml Output Total 300 ml Balance 1270 ml 382 ml 1296 ml Intake Oral 240 ml 0 ml IV Total 1270 ml 442 ml 1296 ml Output Urine Total 300 ml # Voids 0 # Bowel Movements 1 0 Result Diagram: 06/01/17 0710 05/31/17 1045 Objective Remarks GENERAL: MBMN WF,NAD SKIN: Warm and dry. HEAD: Normocephalic. EYES: No scleral icterus. No injection or drainage. NECK: Supple, trachea midline. No JVD or lymphadenopathy. CARDIOVASCULAR: Regular rate and rhythm without murmurs, gallops, or rubs. RESPIRATORY: Breath sounds equal bilaterally. No accessory muscle use. GASTROINTESTINAL: Abdomen soft, non-tender, nondistended. MUSCULOSKELETAL: No cyanosis, or edema. BACK: Nontender without obvious deformity. No CVA tenderness. A/P Assessment and Plan Pneumonia COPD Exac Leucocytosis Nicotine use Anxiety PLAN Cont Abx Aerosol nebs Decrease Solumedrol Smoking cessation Joel Qureshi MD Jun 01, 2017 20:06
[2017-06-01] MEDS ORDERED: ACETAMINOPHEN 325 MG TAB PO ONE (22:15)
[2017-06-02] VITALS (7 sets, daily range): BP systolic 126–167; BP diastolic 77–93; PULSE 71–90; RESP 20–24; TEMP 96–97.3; O2SAT 93–96
[2017-06-02] MEDS: methylPREDNISolone SOD SUCC 40 MG/1 ML VIAL IV PUSH SCH ×3 (03:44→20:09)
[2017-06-02] MEDS: RESP: ALBUTEROL 2.5 MG/IPRATROPIUM 0.5 MG NEB (SCH) NEB ×4 (03:56→19:43)
[2017-06-02] MEDS: SODIUM CHLOR 0.45% 1000 ML INJ 1,000 ML IV SCH (04:10)
[2017-06-02] MEDS: LEVOTHYROXINE SODIUM 50 MCG TAB PO SCH (05:04)
[2017-06-02 06:53] LABS: BICARBONATE 20.9 MEQ/L (21.0-32.0)
[2017-06-02 07:04] LABS: POTASSIUM 4.4 MEQ/L (3.5-5.1)
[2017-06-02] MEDS: BUDESONIDE-FORMOTEROL 160/4.5 MCG INHALER INH SCH ×2 (08:37→20:10)
[2017-06-02] MEDS: NICOTINE 7 MG/24 HR PATCH T-DERMAL SCH (08:38)
[2017-06-02] MEDS: FLUoxetine HCL 20 MG CAP PO SCH (08:42)
[2017-06-02] MEDS: AZITHROMYCIN 250 MG TAB PO SCH (08:43)
[2017-06-02] MEDS: REMOVE OLD PATCH T-DERMAL SCH (08:44)
[2017-06-02] MEDS: BUPRENORPHINE/NALOXONE 8 MG/2 MG SUBLINGUAL TAB SL SCH (09:02)
[2017-06-02 10:41] LABS: AUTOMATED NEUTROPHIL # 17.7 TH/MM3 (1.8-7.7); BASOPHIL # 0.1 TH/MM3 (0-0.2); BASOPHIL % 0.5 % (0.0-2.0); HEMATOCRIT 35.5 % (35.0-46.0); LYMPH % 3.8 % (9.0-44.0); LYMPHOCYTE # 0.7 TH/MM3 (1.0-4.8); MEAN CELL VOLUME 86.8 FL (80.0-100.0); MEAN CORPUSCULAR HGB CONC 32.2 % (32.0-36.0); MONO % 2.4 % (0.0-8.0); NEUT % 93.3 % (16.0-70.0); PLATELET COUNT 447 TH/MM3 (150-450); RED BLOOD COUNT 4.09 MIL/MM3 (4.00-5.30); RED CELL DISTRIBUTION WIDTH 15.2 % (11.6-17.2)
[2017-06-02 10:43] LABS: HEMO FLAGS DIFF FINAL
[2017-06-02] MEDS: CEFEPIME INJ 1,000 MG in SODIUM CHLORIDE 0.9% INJ 100 ML IV SCH ×2 (11:24→17:52)
[2017-06-02] MEDS ORDERED: ALPRAZolam 1 MG TAB PO ONE (11:30)
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
[2017-06-02] MEDS: FAMOTIDINE 20 MG TAB PO SCH (20:09)
[2017-06-02] MEDS: clonazePAM 1 MG TAB PO SCH (20:09)
[2017-06-02] MEDS: MONTELUKAST SODIUM 10 MG TAB PO SCH (20:09)
[2017-06-02] MEDS: ENOXAPARIN SODIUM 40 MG/0.4 ML SYRINGE SQ SCH (20:09)
[2017-06-02] MEDS: ALPRAZolam 1 MG TAB PO PRN (20:10)
--- NOTE | 2017-06-02 20:21 | HHI.PR ---
Subjective Remarks 52 YOWF with COPD Exac, PN CT Chest showes dense infilt Breathing better No CP BC Strep pneumonia Sore throat Objective Vital Signs Vital Signs Date Time Temp Pulse Resp B/P (MAP) Pulse Ox O2 Delivery O2 Flow Rate FiO2 06/02/17 19:46 95 Nasal Cannula 4.00 06/02/17 11:00 97.3 90 22 151/83 (105) 93 06/02/17 09:33 93 Nasal Cannula 2.00 06/02/17 08:45 Nasal Cannula 2.00 06/02/17 08:00 96.6 89 20 162/77 (105) 94 06/02/17 04:00 96.7 71 20 135/87 (103) 96 06/02/17 00:00 96.0 78 24 126/78 (94) 96 06/01/17 23:00 88 06/01/17 21:20 94 Nasal Cannula 3.00 I/O 06/01/17 06/01/17 06/01/17 06/02/17 06/02/17 06/02/17 07:00 15:00 23:00 07:00 15:00 23:00 Intake Total 1296 ml 120 ml 220 ml 10 ml Balance 1296 ml 120 ml 220 ml 10 ml Intake Oral 0 ml 120 ml 120 ml IV Total 1296 ml 100 ml 10 ml # Voids 0 2 3 # Bowel Movements 0 0 0 Result Diagram: 06/02/17 1035 06/02/17 0520 Objective Remarks GENERAL: MBMN WF,NAD SKIN: Warm and dry. HEAD: Normocephalic. EYES: No scleral icterus. No injection or drainage. NECK: Supple, trachea midline. No JVD or lymphadenopathy. CARDIOVASCULAR: Regular rate and rhythm without murmurs, gallops, or rubs. RESPIRATORY: Breath sounds equal bilaterally. No accessory muscle use. GASTROINTESTINAL: Abdomen soft, non-tender, nondistended. MUSCULOSKELETAL: No cyanosis, or edema. BACK: Nontender without obvious deformity. No CVA tenderness. A/P Assessment and Plan Pneumonia COPD Exac Leucocytosis Nicotine use Anxiety Bactremia PLAN Cont Abx Aerosol nebs Solumedrol 40 mg q 8 hrs Smoking cessation Nystatin S&S Joel Qureshi MD Jun 02, 2017 20:21
[2017-06-02] MEDS: NYSTATIN SUSP 500,000 U/5 ML CUP SWISH-SWAL SCH (20:38)
[2017-06-03] VITALS (9 sets, daily range): BP systolic 133–165; BP diastolic 80–96; PULSE 68–85; RESP 18–28; TEMP 96.2–97.2; O2SAT 89–97
[2017-06-03] MEDS: CEFEPIME INJ 1,000 MG in SODIUM CHLORIDE 0.9% INJ 100 ML IV SCH ×3 (02:03→16:53)
[2017-06-03] MEDS: RESP: ALBUTEROL 2.5 MG/IPRATROPIUM 0.5 MG NEB (SCH) NEB ×4 (03:03→20:56)
[2017-06-03] MEDS: methylPREDNISolone SOD SUCC 40 MG/1 ML VIAL IV PUSH SCH ×3 (04:35→19:46)
[2017-06-03] MEDS: LEVOTHYROXINE SODIUM 50 MCG TAB PO SCH (06:12)
[2017-06-03 06:34] LABS: AUTOMATED NEUTROPHIL # 16.5 TH/MM3 (1.8-7.7); BASOPHIL % 0.1 % (0.0-2.0); HEMATOCRIT 34.7 % (35.0-46.0); LYMPH % 5.6 % (9.0-44.0); MEAN CELL VOLUME 86.1 FL (80.0-100.0); MEAN CORPUSCULAR HEMOGLOBIN 28.7 PG (27.0-34.0); MEAN CORPUSCULAR HGB CONC 33.3 % (32.0-36.0); NEUT % 92.3 % (16.0-70.0); PLATELET COUNT 423 TH/MM3 (150-450); RED BLOOD COUNT 4.03 MIL/MM3 (4.00-5.30); RED CELL DISTRIBUTION WIDTH 14.7 % (11.6-17.2); WHITE BLOOD COUNT 17.9 TH/MM3 (4.0-11.0)
[2017-06-03 06:37] LABS: HEMO FLAGS DIFF FINAL
[2017-06-03 07:02] LABS: BICARBONATE 29.7 MEQ/L (21.0-32.0)
[2017-06-03] MEDS: NYSTATIN SUSP 500,000 U/5 ML CUP SWISH-SWAL SCH ×4 (08:51→19:49)
[2017-06-03] MEDS: AZITHROMYCIN 250 MG TAB PO SCH (08:51)
[2017-06-03] MEDS: FLUoxetine HCL 20 MG CAP PO SCH (08:51)
[2017-06-03] MEDS: BUDESONIDE-FORMOTEROL 160/4.5 MCG INHALER INH SCH ×2 (08:52→19:48)
[2017-06-03] MEDS: NICOTINE 7 MG/24 HR PATCH T-DERMAL SCH (08:52)
[2017-06-03] MEDS: REMOVE OLD PATCH T-DERMAL SCH (08:52)
[2017-06-03] MEDS: BUPRENORPHINE/NALOXONE 8 MG/2 MG SUBLINGUAL TAB SL SCH (09:04)
--- NOTE | 2017-06-03 09:08 | HHI.PR ---
Subjective Remarks Patient states she is feeling much better today. No shortness of breath with exertion. She feels much less anxious with the Xanax. Midline was placed in right arm yesterday. Afebrile overnight. Patient gives additional history that she is on Suboxone. She gives a history of several years ago having a problem with Percocet followed by IV heroin. She has been clean for 2 years. Objective Vitals Vital Signs Date Time Temp Pulse Resp B/P (MAP) Pulse Ox O2 Delivery O2 Flow Rate FiO2 06/03/17 08:00 96.8 68 18 137/89 (105) 95 06/03/17 00:00 96.4 69 24 133/80 (97) 97 06/02/17 20:00 96.3 86 22 167/93 (117) 96 06/02/17 19:46 95 Nasal Cannula 4.00 06/02/17 19:00 Nasal Cannula 2.00 06/02/17 11:00 97.3 90 22 151/83 (105) 93 06/02/17 09:33 93 Nasal Cannula 2.00 I/O 06/02/17 06/02/17 06/02/17 06/03/17 06/03/17 06/03/17 07:00 15:00 23:00 07:00 15:00 23:00 Intake Total 220 ml 490 ml 340 ml Balance 220 ml 490 ml 340 ml Intake Oral 120 ml 480 ml 240 ml IV Total 100 ml 10 ml 100 ml # Voids 3 3 2 # Bowel Movements 0 0 0 Result Diagram: 06/03/17 0540 06/03/17 0540 Objective Remarks GENERAL: Well-nourished, well-developed middle-aged female in no apparent distress SKIN: Warm and dry. HEAD: Normocephalic. EYES: No scleral icterus. No injection or drainage. NECK: Supple, trachea midline. No JVD or lymphadenopathy. CARDIOVASCULAR: Regular rate and rhythm without murmurs, gallops, or rubs. RESPIRATORY: Breath sounds equal bilaterally. Scant end expiratory wheezing right upper lobe, prolonged expiratory phase. No accessory muscle use. GASTROINTESTINAL: Abdomen soft, non-tender, nondistended. EXTREMITIES: No cyanosis, or edema. NEUROLOGICAL: Awake, alert, and oriented x 3. Non-focal. A/P Problem List: (1) Sepsis ICD Code: A41.9 - Sepsis, unspecified organism Status: Acute (2) Chronic obstructive pulmonary disease with acute exacerbation ICD Code: J44.1 - Chronic obstructive pulmonary disease with (acute) exacerbation (3) Tobacco use ICD Code: Z72.0 - Tobacco use (4) Leukocytosis ICD Code: D72.829 - Elevated white blood cell count, unspecified (5) Anxiety and depression ICD Code: F41.8 - Other specified anxiety disorders (6) Community acquired pneumonia ICD Code: J18.9 - Pneumonia, unspecified organism Status: Acute Assessment and Plan -Left upper lobe pneumonia, with sepsis and Streptococcus pneumonia in blood culture, Beta strep not group A in sputum culture - significant leukocytosis. Will continue cefepime IV and Zithromax. She is hypoxemic requiring 2 L nasal cannula oxygen. Pulmonology is following the patient. Continue duo nebs. Repeat blood cultures pending from 06/02. F/u cultures and sensitivies. Midline placed 06/02 (due to difficult IV access). -Situational anxiety. We'll treat with Xanax 1 mg 4 times a day as needed. -Depression. Continue Prozac, Klonopin 1 mg at bedtime. -COPD and emphysema. Continue Solu-Medrol and wean. Duo nebs. -Hypothyroidism. TSH within normal limits. Continue Synthroid. -Chronic opioid dependence, history of opioid abuse in remission x 2 years - continue suboxone. -DVT prophylaxis with Lovenox 40 mg subcutaneous daily. Problem Qualifiers (1) Sepsis: Qualified Codes: A40.3 - Sepsis due to Streptococcus pneumoniae (2) Community acquired pneumonia: Qualified Codes: J18.1 - Lobar pneumonia, unspecified organism Lara Bryan MD Jun 03, 2017 09:08
[2017-06-03] MEDS ORDERED: BENZOCAINE-MENTHOL (SUGAR FREE) 15 MG-3.6 MG LOZENGE BUCCAL ONE (10:00)
[2017-06-03] MEDS: BENZOCAINE-MENTHOL (SUGAR FREE) 15 MG-3.6 MG LOZENGE BUCCAL PRN ×3 (13:57→19:52)
[2017-06-03] MEDS: ENOXAPARIN SODIUM 40 MG/0.4 ML SYRINGE SQ SCH (19:47)
[2017-06-03] MEDS: MONTELUKAST SODIUM 10 MG TAB PO SCH (19:48)
[2017-06-03] MEDS: clonazePAM 1 MG TAB PO SCH (19:48)
[2017-06-03] MEDS: FAMOTIDINE 20 MG TAB PO SCH (19:50)
--- NOTE | 2017-06-03 20:08 | HHI.PR ---
Subjective Remarks 52 YOWF with COPD Exac, PN CT Chest showes dense infilt Breathing better No CP BC Strep pneumonia Sore throat better Anxious to go home Objective Vital Signs Vital Signs Date Time Temp Pulse Resp B/P (MAP) Pulse Ox O2 Delivery O2 Flow Rate FiO2 06/03/17 18:19 18 06/03/17 16:00 96.2 75 28 141/90 (107) 95 06/03/17 14:32 96 06/03/17 12:00 97.0 85 18 137/90 (106) 89 06/03/17 09:26 92 Nasal Cannula 2.00 06/03/17 08:30 Nasal Cannula 2.00 06/03/17 08:00 96.8 68 18 137/89 (105) 95 06/03/17 00:00 96.4 69 24 133/80 (97) 97 I/O 06/02/17 06/02/17 06/02/17 06/03/17 06/03/17 06/03/17 07:00 15:00 23:00 07:00 15:00 23:00 Intake Total 220 ml 490 ml 340 ml 340 ml 840 ml Balance 220 ml 490 ml 340 ml 340 ml 840 ml Intake Oral 120 ml 480 ml 240 ml 240 ml 840 ml IV Total 100 ml 10 ml 100 ml 100 ml # Voids 3 3 2 1 2 # Bowel Movements 0 0 0 Result Diagram: 06/03/17 0540 06/03/17 0540 Objective Remarks GENERAL: MBMN WF,NAD SKIN: Warm and dry. HEAD: Normocephalic. EYES: No scleral icterus. No injection or drainage. NECK: Supple, trachea midline. No JVD or lymphadenopathy. CARDIOVASCULAR: Regular rate and rhythm without murmurs, gallops, or rubs. RESPIRATORY: Breath sounds equal bilaterally. No accessory muscle use. GASTROINTESTINAL: Abdomen soft, non-tender, nondistended. MUSCULOSKELETAL: No cyanosis, or edema. BACK: Nontender without obvious deformity. No CVA tenderness. A/P Assessment and Plan Pneumonia COPD Exac Leucocytosis Nicotine use Anxiety Bactremia PLAN Cont Abx Aerosol nebs Solumedrol 40 mg q 8 hrs Smoking cessation Nystatin S&S 02 walk test DC plans for home Joel Qureshi MD Jun 03, 2017 20:08
[2017-06-04] VITALS (7 sets, daily range): BP systolic 96–166; BP diastolic 51–111; PULSE 62–90; RESP 18–26; TEMP 96.1–97.6; O2SAT 88–98
[2017-06-04] MEDS: CEFEPIME INJ 1,000 MG in SODIUM CHLORIDE 0.9% INJ 100 ML IV SCH ×3 (01:08→17:41)
[2017-06-04] MEDS: ALPRAZolam 1 MG TAB PO PRN ×2 (01:12→13:44)
[2017-06-04] MEDS: RESP: ALBUTEROL 2.5 MG/IPRATROPIUM 0.5 MG NEB (SCH) NEB ×3 (03:21→15:43)
[2017-06-04] MEDS: methylPREDNISolone SOD SUCC 40 MG/1 ML VIAL IV PUSH SCH ×3 (04:31→20:39)
[2017-06-04] MEDS: LEVOTHYROXINE SODIUM 50 MCG TAB PO SCH (05:51)
[2017-06-04] MEDS: REMOVE OLD PATCH T-DERMAL SCH (09:00)
[2017-06-04] MEDS: NICOTINE 7 MG/24 HR PATCH T-DERMAL SCH (09:03)
[2017-06-04] MEDS: NYSTATIN SUSP 500,000 U/5 ML CUP SWISH-SWAL SCH ×4 (09:06→20:39)
[2017-06-04] MEDS: FLUoxetine HCL 20 MG CAP PO SCH (09:06)
[2017-06-04] MEDS: AZITHROMYCIN 250 MG TAB PO SCH (09:06)
[2017-06-04] MEDS: BUPRENORPHINE/NALOXONE 8 MG/2 MG SUBLINGUAL TAB SL SCH (09:12)
[2017-06-04] MEDS: BUDESONIDE-FORMOTEROL 160/4.5 MCG INHALER INH SCH ×2 (10:01→20:44)
[2017-06-04] MEDS ORDERED: LEVA750T9 PO (10:26)
[2017-06-04] MEDS ORDERED: OXYGENTANK NAS.CANULA (10:26)
[2017-06-04] MEDS ORDERED: MEDR4PAK PO (10:26)
--- NOTE | 2017-06-04 12:19 | HHI.PR ---
Subjective Remarks Patient states that she is not short of breath. Cough improved. Patient will like to go home. Patient is anxious over the loss of some jewelry. Patient is not wearing oxygen, her oxygen on room air is 85%. Objective Vitals Vital Signs Date Time Temp Pulse Resp B/P (MAP) Pulse Ox O2 Delivery O2 Flow Rate FiO2 06/04/17 08:00 2.00 06/04/17 08:00 96.1 62 26 150/80 (103) 93 06/04/17 00:30 96 Nasal Cannula 2.00 06/04/17 00:00 97.2 76 20 141/88 (105) 96 06/03/17 20:59 91 Nasal Cannula 3.00 06/03/17 20:30 91 Nasal Cannula 2.00 06/03/17 20:00 97.2 78 20 165/96 (119) 91 06/03/17 18:19 18 06/03/17 16:00 96.2 75 28 141/90 (107) 95 06/03/17 14:32 96 I/O 06/03/17 06/03/17 06/03/17 06/04/17 06/04/17 06/04/17 07:00 15:00 23:00 07:00 15:00 23:00 Intake Total 340 ml 340 ml 1080 ml 280 ml Balance 340 ml 340 ml 1080 ml 280 ml Intake Oral 240 ml 240 ml 1080 ml 180 ml IV Total 100 ml 100 ml 100 ml # Voids 2 1 4 1 # Bowel Movements 0 0 0 Result Diagram: 06/03/17 0540 06/03/17 0540 Objective Remarks GENERAL: Well-nourished, well-developed middle-aged female in no apparent distress SKIN: Warm and dry. HEAD: Normocephalic. EYES: No scleral icterus. No injection or drainage. NECK: Supple, trachea midline. No JVD or lymphadenopathy. CARDIOVASCULAR: Regular rate and rhythm without murmurs, gallops, or rubs. RESPIRATORY: Breath sounds equal bilaterally. No wheezing but does have prolonged expiratory phase. No accessory muscle use. GASTROINTESTINAL: Abdomen soft, non-tender, nondistended. EXTREMITIES: No cyanosis, or edema. NEUROLOGICAL: Awake, alert, and oriented x 3. Non-focal. A/P Problem List: (1) Sepsis ICD Code: A41.9 - Sepsis, unspecified organism Status: Acute (2) Chronic obstructive pulmonary disease with acute exacerbation ICD Code: J44.1 - Chronic obstructive pulmonary disease with (acute) exacerbation (3) Tobacco use ICD Code: Z72.0 - Tobacco use (4) Leukocytosis ICD Code: D72.829 - Elevated white blood cell count, unspecified (5) Anxiety and depression ICD Code: F41.8 - Other specified anxiety disorders (6) Community acquired pneumonia ICD Code: J18.9 - Pneumonia, unspecified organism Status: Acute Assessment and Plan -Left upper lobe pneumonia, with sepsis and Streptococcus pneumonia in blood culture sensitive to Levaquin, Beta strep not group A in sputum culture - continue and will require home oxygen cefepime IV and Zithromax. She is hypoxemic requiring 2 L nasal cannula oxygen. Pulmonology is following the patient. Continue duo nebs. Repeat blood cultures pending from 06/02 are negative at 48 hours. Midline placed 06/02 (due to difficult IV access). -Situational anxiety. We'll treat with Xanax 1 mg 4 times a day as needed. -Depression. Continue Prozac, Klonopin 1 mg at bedtime. -COPD and emphysema. Continue Solu-Medrol and wean. Duo nebs. -Hypothyroidism. TSH within normal limits. Continue Synthroid. -Chronic opioid dependence, history of opioid abuse in remission x 2 years - continue suboxone. -DVT prophylaxis with Lovenox 40 mg subcutaneous daily. Discharge Planning Anticipate discharge home tomorrow if blood cultures remain negative at 72 hours. Patient will receive Levaquin 2 total 2 weeks treatment. Home oxygen will be arranged for the patient. Problem Qualifiers (1) Sepsis: Qualified Codes: A40.3 - Sepsis due to Streptococcus pneumoniae (2) Community acquired pneumonia: Qualified Codes: J18.1 - Lobar pneumonia, unspecified organism Lara Bryan MD Jun 04, 2017 12:19
--- NOTE | 2017-06-04 18:00 | HHI.PR ---
Subjective Remarks 52 YOWF with COPD Exac, PN CT Chest showes dense infilt Breathing better No CP Sore throat better Anxious to go home Objective Vital Signs Vital Signs Date Time Temp Pulse Resp B/P (MAP) Pulse Ox O2 Delivery O2 Flow Rate FiO2 06/04/17 16:00 96.8 78 26 130/80 (97) 94 06/04/17 13:47 92 Nasal Cannula 2.00 06/04/17 13:12 97 Nasal Cannula 2.00 06/04/17 12:00 97.6 90 20 150/100 (117) 88 06/04/17 08:00 2.00 06/04/17 08:00 96.1 62 26 150/80 (103) 93 06/04/17 00:30 96 Nasal Cannula 2.00 06/04/17 00:00 97.2 76 20 141/88 (105) 96 06/03/17 20:59 91 Nasal Cannula 3.00 06/03/17 20:30 91 Nasal Cannula 2.00 06/03/17 20:00 97.2 78 20 165/96 (119) 91 06/03/17 18:19 18 I/O 06/03/17 06/03/17 06/03/17 06/04/17 06/04/17 06/04/17 07:00 15:00 23:00 07:00 15:00 23:00 Intake Total 340 ml 340 ml 1080 ml 280 ml 940 ml Balance 340 ml 340 ml 1080 ml 280 ml 940 ml Intake Oral 240 ml 240 ml 1080 ml 180 ml 940 ml IV Total 100 ml 100 ml 100 ml # Voids 2 1 4 1 7 # Bowel Movements 0 0 0 2 Result Diagram: 06/03/1753906/03/1740 Objective Remarks GENERAL: MBMN WF,NAD SKIN: Warm and dry. HEAD: Normocephalic. EYES: No scleral icterus. No injection or drainage. NECK: Supple, trachea midline. No JVD or lymphadenopathy. CARDIOVASCULAR: Regular rate and rhythm without murmurs, gallops, or rubs. RESPIRATORY: Breath sounds equal bilaterally. No accessory muscle use. GASTROINTESTINAL: Abdomen soft, non-tender, nondistended. MUSCULOSKELETAL: No cyanosis, or edema. BACK: Nontender without obvious deformity. No CVA tenderness. A/P Assessment and Plan Pneumonia COPD Exac Leucocytosis Nicotine use Anxiety Bactremia PLAN Cont Abx Aerosol nebs Smoking cessation Nystatin S&S Home 02 Stable from Pulm standpoint Available prn over weekend. DC plans for home Joel Qureshi MD Jun 04, 2017 18:00
[2017-06-04] MEDS: ENOXAPARIN SODIUM 40 MG/0.4 ML SYRINGE SQ SCH (20:39)
[2017-06-04] MEDS: FAMOTIDINE 20 MG TAB PO SCH (20:39)
[2017-06-04] MEDS: SODIUM CHLORIDE 0.9% FLUSH 10 ML FLUSH IVF PRN (20:39)
[2017-06-04] MEDS: MONTELUKAST SODIUM 10 MG TAB PO SCH (20:39)
[2017-06-04] MEDS: clonazePAM 1 MG TAB PO SCH (20:39)
[2017-06-05] VITALS: BP 150/91; PULSE 66; RESP 20; TEMP 97.8; O2SAT 92
[2017-06-05] MEDS: methylPREDNISolone SOD SUCC 40 MG/1 ML VIAL IV PUSH SCH ×2 (02:27→12:01)
[2017-06-05] MEDS: CEFEPIME INJ 1,000 MG in SODIUM CHLORIDE 0.9% INJ 100 ML IV SCH ×3 (02:27→12:01)
[2017-06-05] MEDS: ALPRAZolam 1 MG TAB PO PRN ×2 (02:33→08:06)
[2017-06-05] MEDS: LEVOTHYROXINE SODIUM 50 MCG TAB PO SCH (05:26)
[2017-06-05 08:00] VITALS: BP 139/97; PULSE 63; RESP 18; TEMP 97.7; O2SAT 96
[2017-06-05] MEDS: NYSTATIN SUSP 500,000 U/5 ML CUP SWISH-SWAL SCH ×2 (08:04→12:01)
[2017-06-05] MEDS: NICOTINE 7 MG/24 HR PATCH T-DERMAL SCH (08:05)
[2017-06-05] MEDS: AZITHROMYCIN 250 MG TAB PO SCH (08:05)
[2017-06-05] MEDS: FLUoxetine HCL 20 MG CAP PO SCH (08:05)
[2017-06-05] MEDS: REMOVE OLD PATCH T-DERMAL SCH (08:05)
[2017-06-05] MEDS: BUDESONIDE-FORMOTEROL 160/4.5 MCG INHALER INH SCH (08:06)
[2017-06-05] MEDS: BUPRENORPHINE/NALOXONE 8 MG/2 MG SUBLINGUAL TAB SL SCH (08:30)
[2017-06-05 12:00] VITALS: BP 132/79; PULSE 88; RESP 18; TEMP 98; O2SAT 96
[2017-06-05] MEDS ORDERED: PRED20 PO (12:48)
--- NOTE | 2017-06-05 12:49 | HHI.DS ---
Discharge Summary Admission Date May 31, 2017 at 12:26 Discharge Date: Jun 05, 2017 Admitting Diagnosis copd exacerbation (1) Chronic obstructive pulmonary disease with acute exacerbation ICD Code: J44.1 - Chronic obstructive pulmonary disease with (acute) exacerbation (2) Tobacco use ICD Code: Z72.0 - Tobacco use (3) Leukocytosis ICD Code: D72.829 - Elevated white blood cell count, unspecified (4) Anxiety and depression ICD Code: F41.8 - Other specified anxiety disorders (5) Community acquired pneumonia ICD Code: J18.9 - Pneumonia, unspecified organism Status: Acute (6) Sepsis due to Streptococcus pneumoniae ICD Code: A40.3 - Sepsis due to Streptococcus pneumoniae Procedures Midline placed 06/02, discontinued 06/05. Brief History - From Admission 52-year-old female with known history of chronic obstructive pulmonary disease, chronic tobacco use, chronic back pain, hypertension, hypothyroidism who presented to hospital because of 4 day history of difficulty breathing. Patient states that 4 days ago she developed a sudden onset of chest pain located over her left sternal border which she described as a tightness and 9/10 on a pain scale. She states that it felt as if someone hit her in the chest. However since then she is been having intermittent chest pain that would go down to a 4/10 on a pain scale. She indicates that her chest pain did go away yesterday. She has had nausea vomiting, denies any diaphoresis. She states she started developing significant shortness of breath 3 days ago and progressively got worse until it was severe today. She states that she has never felt this way before. She is down here visiting from [place]. She does indicate that she has been smoking more since she has been visiting here. She is smoking up to a pack a cigarettes a day. She states that someone gave her some antibiotics yesterday and she has been taking that for 2 days. She had been taking ibuprofen with cough medicine. Her symptoms did not improve so she came to emergency department for evaluation. She denies any fever or chills, denies any dysuria. Has had urinary frequency. Patient had workup done emergency department found to have sepsis per criteria and recommended admission for further recommendations CBC/BMP: 06/03/17 0540 06/03/17 0540 Significant Findings Laboratory Tests Test 06/03/17 05:40 White Blood Count 17.9 TH/MM3 (4.0-11.0) Hematocrit 34.7 % (35.0-46.0) Neutrophils (%) (Auto) 92.3 % (16.0-70.0) Lymphocytes (%) (Auto) 5.6 % (9.0-44.0) Neutrophils # (Auto) 16.5 TH/MM3 (1.8-7.7) Blood Urea Nitrogen 22 MG/DL (7-18) Estimat Glomerular Filtration Rate 75 ML/MIN (>89) PE at Discharge GENERAL: Well-nourished, well-developed middle-aged female in no apparent distress SKIN: Warm and dry. HEAD: Normocephalic. EYES: No scleral icterus. No injection or drainage. NECK: Supple, trachea midline. No JVD or lymphadenopathy. CARDIOVASCULAR: Regular rate and rhythm without murmurs, gallops, or rubs. RESPIRATORY: Breath sounds equal bilaterally. No wheezing but does have prolonged expiratory phase. No accessory muscle use. GASTROINTESTINAL: Abdomen soft, non-tender, nondistended. EXTREMITIES: No cyanosis, or edema. NEUROLOGICAL: Awake, alert, and oriented x 3. Non-focal. Pt update on day of discharge Patient states she is feeling well today. Apparently she left her room and went for a walk and left the hospital and came back. Patient currently not wearing her oxygen. Patient was advised she needs to wear her oxygen continuously. Patient denies shortness of breath. Patient eager to be discharged home. Hospital Course Patient was admitted to the hospital and treated with cefepime and Zithromax. Pulmonology was consulted. Patient was treated for COPD exacerbation. Patient had significant anxiety while hospitalized. Patient clinically improved. Blood cultures initially were positive for Streptococcus pneumoniae. Repeat blood cultures were negative. Patient has been stable on 2 L nasal cannula oxygen. Patient will be treated with Levaquin for total of 2 weeks therapy for the Streptococcus pneumonia and bacteremia. Patient has had home oxygen arranged. She will be on a 2 week prednisone taper. Patient to follow-up with her qa manager next week. Pt Condition on Discharge: Stable Discharge Disposition: Discharge Home Discharge Time: > 30 minutes Discharge Instructions DIET: Follow Instructions for: As Tolerated, No Restrictions Activities you can perform: Regular-No Restrictions Follow up Referrals: PCP Follow-up - 1 Week Pulmonology - 1 Week New Medications: Levofloxacin (Levaquin) 750 Mg Tablet 750 MG PO DAILY for Infection, #10 TAB 0 Refills Oxygen tank (Oxygen tank) 1 Ea Tank LITER VLAD.CANULA CONTINUOUS for HYPOXEMIA PREVENTION, #12 Oxygen Concentrator Portable Gaseous 2 L/min via Nasal Cannula Continuous For 99 months Prednisone (Prednisone) 20 Mg Tab 20 MG PO DIRECTED for Inflammation for 14 Days, #11 TAB 0 Refills 40 MG twice a day x 3 days, then 20 MG twice a day x 4 days, then 20 MG daily x 4 days, then 10 mg daily for 3 days then stop Continued Medications: Albuterol 18 GM Inh (Ventolin Hfa 18 GM Inh) 90 Mcg/Act Aer 2 PUFF INH Q4H PRN for SHORTNESS OF BREATH, #1 INHALER 0 Refills Budesonide-Formoterol Inh (Symbicort Inh) 160-4.5 Mcg/Act Aero 1 PUFF INH Q12HR, #1 INHALER 0 Refills Buprenorphine-Naloxone Sublingual Film (Suboxone Sublingual Film) 2-0.5 Mg Film 1 FILM SL DAILY, FILM Unique ID number required: Clonazepam (Klonopin) 1 Mg Tab 1 MG PO HS for Anxiety and/or Insomnia, #60 TAB 0 Refills Fluoxetine (Prozac) 40 Mg Cap 40 MG PO DAILY for Anxiety and/or Insomnia, #30 CAP 0 Refills Levothyroxine (Levothyroxine) 50 Mcg Tab 50 MCG PO DAILY for Thyroid, #30 TAB 0 Refills Losartan (Losartan) 50 Mg Tab 0 PO DAILY for Blood Pressure Management, #30 TAB 0 Refills Montelukast (Singulair) 10 Mg Tab 10 MG PO HS, #30 TAB 0 Refills Lara Bryan MD Jun 05, 2017 12:49
[2017-06-05] MEDS ORDERED: LEVOFLOXACIN 750 MG TAB PO ONE (13:15)
[2017-06-05] MEDS ORDERED: NICO1DIS8 T-DERMAL (13:32)
== END 2017-06-05 13:47 | disposition home or self-care (01) | DRG 871 ==
LOC: PHED 10:10 → PHEDA 12:26 → PH3B 14:50
PROVIDERS: ADMIT Family Medicine; ATTEND Family Medicine
PROC: 05HP33Z Insertion of Infusion Device into Right External Jugular Vein, Percutaneous Approach (ICD-10-PCS; principal; 2017-05-31)
PROC: 05H533Z Insertion of Infusion Device into Right Subclavian Vein, Percutaneous Approach (ICD-10-PCS; 2017-06-02)
PROC: B546ZZA Ultrasonography of Right Subclavian Vein, Guidance (ICD-10-PCS; 2017-06-02)
DX: A40.3 Sepsis due to Streptococcus pneumoniae (principal); J18.9 Pneumonia, unspecified organism; J44.0 Chronic obstructive pulmonary disease with (acute) lower respiratory infection; J44.1 Chronic obstructive pulmonary disease with (acute) exacerbation; F41.8 Other specified anxiety disorders; I10 Essential (primary) hypertension; G89.29 Other chronic pain; E03.9 Hypothyroidism, unspecified; M54.9 Dorsalgia, unspecified; F17.210 Nicotine dependence, cigarettes, uncomplicated; R73.9 Hyperglycemia, unspecified; R09.02 Hypoxemia; F11.11 Opioid abuse, in remission; J02.9 Acute pharyngitis, unspecified
CPT/HCPCS: 36569; 71010; 71250; 71275; 76937; 80048; 80053; 82550; 83036; 83605; 83735; 83880; 84443; 84484; 85007; 85025; 85027; 85610; 85730; 87040; 87070; 87186; 87205; 87804; 93005; 94620; 94640; 94664; 96365; 96375; J0456; J0692; J0696; J1650; J2270; J2920; J2930; J7030; J7050; Q9967